=== PATIENT | male | born 1960 | race Asian ===

== ENCOUNTER 2019-02-02 11:33 | Emergency (ER) | payer OTHER ==
[~2019-02-02] VITALS: Ht 203.2 cm; Wt 69.4 kg
[2019-02-02 11:37] VITALS: Ht 203.2 cm; Wt 69.4 kg
[2019-02-02 12:22] LABS: CALCIUM 10.1 mg/dL (8.5-10.1); CHLORIDE SERUM 92 mmol/L (98-107); CREATININE SERUM 1.1 mg/dL (0.7-1.3); GFR1 > 60 mL/min; GLUCOSE SERUM 189 mg/dL (74-106); POTASSIUM SERUM 4.1 mmol/L (3.5-5.1); SODIUM SERUM 129 mmol/L (136-145)
[2019-02-02 12:26] LABS: ALKALINE PHOSPHATASE 218 U/L (46-116); ALT/SGPT 93 U/L (16-63); AST/SGOT 41 U/L (15-37); BILIRUBIN TOTAL 0.66 mg/dL (0.20-1.00); URIC ACID 3.1 mg/dL (3.5-7.2)
[2019-02-02 12:29] LABS: BASOPHIL % 0.2 % (0-2); RED CELL DISTRIBUTION WIDTH 12.6 % (11.5-14.5)
[2019-02-02 12:32] LABS: PLATELET COUNT 402 x10^3mcL (130-400)
[2019-02-02 12:42] LABS: ALBUMIN 2.9 g/dL (3.4-5.0); TOTAL PROTEIN, SERUM 8.9 g/dL (6.4-8.2)
[2019-02-02 13:11] LABS: C REACTIVE PROTEIN 19.2 mg/dL (<=0.9)
[2019-02-02 14:56] VITALS: BP 122/73
[2019-02-02 18:09] LABS: ERYTHROCYTE SED RATE > 120 mm/hr (0-20)
== END 2019-02-02 15:17 | disposition home or self-care (01) ==
LOC: ED 11:33
PROVIDERS: Emergency Medicine
DX: M1A.0710 Idiopathic chronic gout, right ankle and foot, without tophus (tophi) (principal); I10 Essential (primary) hypertension
CPT/HCPCS: 36415; Q0092